=== PATIENT | male | born 1980 | race African-American/Black ===

== ENCOUNTER 2021-01-05 10:30 | Emergency (ER) | payer OTHER ==
[~2021-01-05] VITALS: Ht 180.3 cm; Wt 96.2 kg
[2021-01-05] MEDS ORDERED: KETO10TA2 PO (14:53)
== END 2021-01-05 15:25 | disposition home or self-care (01) ==
LOC: ER 10:30
DX: M25.521 Pain in right elbow (principal); Y93.64 Activity, baseball; Y92.39 Other specified sports and athletic area as the place of occurrence of the external cause